=== PATIENT | female | born 1960 | race Two or more races ===

== ENCOUNTER → 2024-07-07 14:04 | Outpatient (REF) | payer OTHER, SELFPAY | LOC: WDC 14:04 | PROVIDERS: ATTENDING PHYSICIAN Nurse Practitioner Obstetrics & Gynecology; FAMILY PHYSICIAN Internal Medicine | DX: N63.22 Unspecified lump in the left breast, upper inner quadrant (principal) | CPT/HCPCS: 76642 ==